=== PATIENT | female | born 1990 | race Caucasian/White ===

== ENCOUNTER → 2016-12-21 | Outpatient (CLI) | payer MEDICAID ==
--- NOTE | 2016-12-21 15:17 | REP ---
THORACIC SPINE SERIES: Three views. HISTORY: Back pain. FINDINGS: Thoracic vertebral body heights are preserved. There is a minimal levoconvex lower thoracic curve on the frontal view. Alignment is normal. Disc spaces are maintained. Swimmers lateral view shows no additional abnormality. Pedicles and posterior elements are intact. No paravertebral soft-tissue mass is seen. IMPRESSION: No significant abnormality. Signed by Fracnisco Luna MD 12/21/2016 04:47 P
--- NOTE | 2016-12-21 15:17 | REP ---
LUMBAR SPINE SERIES: Seven views. HISTORY: Low back pain. No comparison studies. FINDINGS: Lumbar vertebral body heights are preserved. There is some straightening of the normal lumbar lordosis. Disc spaces are maintained. There is an ununited ossification center at the tip of the spinous process at L4 as a normal variant. Pedicles and posterior elements are intact. There is no evidence of spondylolysis or spondylolisthesis. Flexion/extension lateral views show no subluxation or instability. Sacrum and SI joints are intact. Psoas margins are symmetric. IMPRESSION: No significant abnormality. Signed by Francisco Luna MD 12/21/2016 04:47 P
--- NOTE | 2016-12-21 15:18 | REP ---
CERVICAL SPINE SERIES: Seven views. HISTORY: Low back pain. FINDINGS: Lateral views done in flexion/extension and neutral position show preserved vertebral body heights and normal alignment. Disc spaces are maintained. No subluxation is seen. Oblique radiographs demonstrate intact neural foramina bilaterally at each cervical level and normally aligned facets. AP and open mouth odontoid views are unremarkable. IMPRESSION: Negative cervical spine radiographs. Signed by Francisco Luna MD 12/21/2016 04:47 P
== END ==
LOC: M SMT 13:53
PROVIDERS: ATTEND Physician Assistant Medical
DX: M54.5 Low back pain (principal)

== ENCOUNTER 2017-03-01 18:11 | Emergency (ER) | payer MEDICAID ==
[~2017-03-01] VITALS: Ht 154.9 cm; Wt 83.2 kg
[2017-03-01] MEDS: METHOCARBAMOL 500 MG TAB PO ONE ×2 (19:15→19:56)
[2017-03-01] MEDS ORDERED: ACETAMINOPHEN 325 MG TAB PO ONE (19:15)
[2017-03-01] MEDS ORDERED: ROBA500T PO (19:15)
[2017-03-01 20:02] VITALS: BP 133/70
== END 2017-03-01 20:05 | disposition home or self-care (01) ==
LOC: M ED 18:11
DX: S39.012A Strain of muscle, fascia and tendon of lower back, initial encounter (principal); S29.012A Strain of muscle and tendon of back wall of thorax, initial encounter; X50.3XXA Overexertion from repetitive movements, initial encounter; Y92.019 Unspecified place in single-family (private) house as the place of occurrence of the external cause; Y93.89 Activity, other specified; Y99.8 Other external cause status; M41.9 Scoliosis, unspecified; Z88.5 Allergy status to narcotic agent; Z88.6 Allergy status to analgesic agent

== ENCOUNTER 2017-11-19 19:01 | Emergency (ER) | payer MEDICAID | END 2017-11-19 19:47 | disposition left against medical advice (07) | LOC: M ED 19:01 | DX: Z53.29 Procedure and treatment not carried out because of patient's decision for other reasons (principal) ==

== ENCOUNTER 2019-01-06 11:20 | Emergency (ER) | payer MEDICAID ==
[~2019-01-06] VITALS: Ht 144.8 cm; Wt 84.5 kg
[~2019-01-06 11:20] MED LIST: ROBA500T PO
[2019-01-06] MEDS ORDERED: ONDANSETRON 4MG/2ML VIAL (J2405) IV ONE (12:00)
[2019-01-06] MEDS ORDERED: NS 1,000 ML IV ONE (12:00)
[2019-01-06 12:30] LABS: BASO % 0.3 % (0.0-1.0); EOS # 0.2 10^3/uL (0.0-0.50); EOS % 1.5 % (0.0-3.0); HEMATOCRIT 45.5 % (36.0-47.0); HEMOGLOBIN 15.4 g/dl (12.0-15.5); LYMPH # 2.7 10^3/uL (1.5-6.5); LYMPH % 20.8 % (24.0-44.0); MEAN CORPUSCULAR HEMOGLOBIN 29.8 pg (27.0-33.0); MEAN CORPUSCULAR HGB CONC 33.8 g/dl (32.0-36.5); MONO # 0.6 10^3/uL (0.0-0.8); MONO % 4.7 % (0.0-5.0); NEUTROPHILS # 9.3 10^3/uL (1.8-7.7); NEUTROPHILS % 72.2 % (36.0-66.0); PLATELET COUNT, AUTOMATED 326 10^3/uL (150-450); RED BLOOD COUNT 5.17 10^6/uL (4.00-5.40); WHITE BLOOD COUNT 12.8 10^3/uL (4.0-10.0)
[2019-01-06 13:42] LABS: ALBUMIN 3.3 GM/DL (3.2-5.2); ALT/SGPT 23 U/L (12-78); AMYLASE 36 U/L (25-115); BILIRUBIN,DIRECT < 0.1 MG/DL (0.0-0.2); BILIRUBIN,TOTAL < 0.1 MG/DL (0.2-1.0); BLOOD UREA NITROGEN 10 MG/DL (7-18); CARBON DIOXIDE LEVEL 27 MEQ/L (21-32); CHLORIDE LEVEL 111 MEQ/L (98-107); CREATININE FOR GFR 0.81 MG/DL (0.55-1.30); GLOMERULAR FILTRATION RATE > 60.0 (>60); GLUCOSE, FASTING 94 MG/DL (70-100); LIPASE 122 U/L (73-393); POTASSIUM SERUM 4.3 MEQ/L (3.5-5.1); SODIUM LEVEL 143 MEQ/L (136-145)
[2019-01-06] MEDS ORDERED: MORPHINE 2 MG/ML 1ML SYRINGE (J2270) IV ONE (14:00)
[2019-01-06 14:16] VITALS: BP 125/72
[2019-01-06] MEDS ORDERED: ONDA4TAB6 PO (14:27)
[2019-01-06] MEDS ORDERED: PEPC1TAB5 PO (14:27)
--- NOTE | 2019-01-06 14:47 | REP ---
CT ABDOMEN/PELVIS WITHOUT CONTRAST: CT abdomen/pelvis performed without oral or IV contrast. Sagittal and coronal reconstruction images are performed. Visualized lung bases demonstrate no evidence of infiltrate. Liver, spleen, adrenals, pancreas, and kidneys are grossly unremarkable. There is no renal, ureteral, or bladder calculus. There is no hydroureteronephrosis. There is no abdominal aortic aneurysm. No adenopathy. There is no free air or free fluid. I see no bowel wall thickening. There is no evidence of appendicitis. In the pelvis, there is a dominant follicle of the right ovary 1.7 cm in diameter without other significant abnormality. IMPRESSION: Dominant follicle right ovary 1.7 cm in diameter. No evidence of appendicitis. No free air or free fluid. No evidence of a renal, ureteral, or bladder calculus and no hydroureteronephrosis. Electronically Signed by Abilio Dill MD 01/07/2019 03:07 P
== END 2019-01-06 14:31 | disposition home or self-care (01) ==
LOC: M ED 11:20
DX: R10.11 Right upper quadrant pain (principal); R11.2 Nausea with vomiting, unspecified; F17.200 Nicotine dependence, unspecified, uncomplicated; Z88.5 Allergy status to narcotic agent; Z88.6 Allergy status to analgesic agent
CPT/HCPCS: 36415; 74176; 80048; 80076; 81001; 82150; 83690; 84702; 85025; 87086; 96374; 96375; 99284; J2270; J2405

== ENCOUNTER → 2019-07-04 | Outpatient (REF) | payer MEDICAID ==
[~2019-07-04] MED LIST changes: +ONDA4TAB6 PO; +PEPC1TAB5 PO
[2019-07-04 16:58] LABS: BASO % 0.4 % (0.0-1.0); EOS # 0.1 10^3/uL (0.0-0.5); EOS % 1.5 % (0.0-3.0); HEMOGLOBIN 13.8 g/dl (12.0-15.5); LYMPH # 1.8 10^3/uL (1.5-5.0); MEAN CORPUSCULAR HEMOGLOBIN 29.8 pg (27.0-33.0); MEAN CORPUSCULAR HGB CONC 32.9 g/dl (32.0-36.5); MEAN CORPUSCULAR VOLUME 90.7 fl (80.0-96.0); MONO # 0.4 10^3/uL (0.0-0.8); MONO % 5.6 % (0.0-5.0); NEUTROPHILS # 5.5 10^3/uL (1.5-8.5); NEUTROPHILS % 69.2 % (36.0-66.0); PLATELET COUNT, AUTOMATED 259 10^3/uL (150-450); RED BLOOD COUNT 4.63 10^6/uL (4.00-5.40); WHITE BLOOD COUNT 7.9 10^3/uL (4.0-10.0)
[2019-07-04 17:14] LABS: ALT/SGPT 31 U/L (12-78); BILIRUBIN,TOTAL 0.3 MG/DL (0.2-1.0); BLOOD UREA NITROGEN 10 MG/DL (7-18); CALCIUM LEVEL 8.8 MG/DL (8.5-10.1); CARBON DIOXIDE LEVEL 28 MEQ/L (21-32); CHLORIDE LEVEL 107 MEQ/L (98-107); CHOLESTEROL LEVEL 163 MG/DL (<200); CHOLESTEROL RISK RATIO 5.258 (<5); CREATININE FOR GFR 0.88 MG/DL (0.55-1.30); FREE T4 1.13 NG/DL (0.76-1.46); GLOMERULAR FILTRATION RATE > 60.0 (>60); GLUCOSE, FASTING 74 MG/DL (70-100); HDL CHOLESTEROL 31 MG/DL (>40); LDL CHOLESTEROL 83 MG/DL (<100); NON-HDL-C 132 MG/DL; POTASSIUM SERUM 3.8 MEQ/L (3.5-5.1); SODIUM LEVEL 140 MEQ/L (136-145); TOTAL 25(OH) VITAMIN D 20.1 NG/ML (30.0-100.0); TOTAL PROTEIN 7.6 GM/DL (6.4-8.2); TRIGLYCERIDES LEVEL 244 MG/DL (<150)
[2019-07-04 17:28] LABS: HEMOGLOBIN A1c 5.3 %
== END ==
LOC: M LAB REF 16:09
PROVIDERS: ATTEND Nurse Practitioner Family
DX: Z13.9 Encounter for screening, unspecified (principal)

== ENCOUNTER → 2019-07-14 | Outpatient (CLI) | payer MEDICAID ==
--- NOTE | 2019-07-14 12:32 | REP ---
Two views thoracolumbar spine: 07/14/2019. Indication: Scoliosis. Comparison: 12/21/2016. Findings: There is minimal levoscoliosis of the thoracolumbar junction. Scoliosis measures 4 degrees. There is no acute fracture. There is no evidence of dysraphism. No significant paraspinal soft tissue abnormalities are detected. Impression: Minimal levoscoliosis of the thoracolumbar spine. Electronically Signed by Ravindra Cantrell DO 07/14/2019 12:24 P
== END ==
LOC: M RAD 11:10
PROVIDERS: ATTEND Nurse Practitioner Family
DX: M54.9 Dorsalgia, unspecified (principal); M41.85 Other forms of scoliosis, thoracolumbar region

== ENCOUNTER → 2020-11-19 | Outpatient (CLI) | payer MEDICAID ==
[~2020-11-19] MED LIST changes: +PROHANCE 279.3MG/ML 15ML VIAL As Ordered ONE
--- NOTE | 2020-11-22 09:06 | REP ---
INDICATION: LBP/LAB WORK SEE ORDER. Repeat dictation. Preliminary report is provided at the time of the exam by ray NATH. Midline low back pain. COMPARISON: Comparison radiographs are from December 21, 2016.. TECHNIQUE: Sagittal and axial T1 and T2-weighted scans are acquired in the usual fashion with and without fat saturation. Sequences include spin echo, turbo spin-echo, and STIR imaging sequences. Post gadolinium enhanced imaging is acquired as well. The gadolinium enhancement dose is 15 mL of intravenous ProHance. FINDINGS: Lumbar vertebral body heights are preserved and alignment is normal. Pedicles and posterior elements are intact. There is no evidence of spondylolysis or spondylolisthesis. Disc spaces are maintained. The tip of the conus medullaris is normal in appearance and position at the L1. No lumbar disc protrusion is seen. There is no evidence of central canal stenosis or neural foraminal narrowing. Facets are unremarkable. Postcontrast imaging shows no abnormal gadolinium enhancement. No extra vertebral abnormality is observed. IMPRESSION: Unremarkable lumbar spine MRI study without and with intravenous contrast <Electronically signed by Adonis Luna > 11/22/20 0902
== END ==
LOC: M RAD 16:36
PROVIDERS: ATTEND Student in an Organized Health Care Education/Training Program
DX: M54.5 Low back pain (principal)
CPT/HCPCS: 72158; A9576

== ENCOUNTER → 2021-04-13 | Outpatient (CLI) | payer MEDICAID ==
[~2021-04-13] MED LIST changes: -PROHANCE 279.3MG/ML 15ML VIAL As Ordered ONE
== END ==
LOC: M PAIN 08:30
PROVIDERS: ATTEND Anesthesiology
DX: M79.18 Myalgia, other site (principal); J45.909 Unspecified asthma, uncomplicated; F17.210 Nicotine dependence, cigarettes, uncomplicated; Z86.59 Personal history of other mental and behavioral disorders; Z88.1 Allergy status to other antibiotic agents; Z88.6 Allergy status to analgesic agent; Z79.899 Other long term (current) drug therapy